=== PATIENT | female | born 1980 | race American Indian/Alaskan Native ===

== ENCOUNTER 2020-04-28 13:03 | Outpatient (CLI) | payer MEDICAID ==
--- NOTE | 2020-04-28 14:59 | XRay Report ---
CERVICAL SPINE 5 VIEWS INDICATION: RADICULOPATHY. COMPARISON: None. IMPRESSION: Normal alignment. No significant discogenic DJD or facet arthropathy. No acute osseous or soft tissue abnormality. RIGHT SHOULDER 3 VIEWS INDICATION: Right shoulder pain. COMPARISON: None. IMPRESSION: No acute osseous or soft tissue abnormality. Mild osteoarthritic changes are identifi ed at the glenohumeral joint. Signer Name: Cristobal Hood Jr, MD Signed: 04/28/2020 2:54 PM Workstation Name: [id number]
== END 2020-04-28 13:04 | disposition home or self-care (01) ==
LOC: XRAY 13:03
PROVIDERS: ATTEND Orthopaedic Surgery
DX: M19.011 Primary osteoarthritis, right shoulder (principal); M54.12 Radiculopathy, cervical region
CPT/HCPCS: 72050